=== PATIENT | female | born 1975 | race Caucasian/White ===

== ENCOUNTER 2024-09-15 06:32 | Emergency (ER) | payer SELFPAY ==
[~2024-09-15] VITALS: Ht 162.6 cm; Wt 59.0 kg
[2024-09-15 06:37] VITALS: O2SAT 100
[2024-09-15 08:39] VITALS: BP 111/59; PULSE 83; RESP 14; TEMP 37.6; O2SAT 100
== END 2024-09-15 09:38 | disposition home or self-care (01) ==
LOC: ER 06:32 → EDBEDREQ 07:22 → ER 09:38
DX: R00.2 Palpitations (principal); Z88.0 Allergy status to penicillin; Z87.898 Personal history of other specified conditions
CPT/HCPCS: 71045; 93005; 99283